=== PATIENT | male | born 1955 | race Caucasian/White ===

== ENCOUNTER → 2020-05-26 | Outpatient (CLI) | payer MEDICARE, OTHER ==
--- NOTE | 2020-05-28 05:26 | RAD ---
EXAM DESCRIPTION: Pelvis (accession [id number]), Hip,Left 2 Views (accession [id number]) EXAM DESCRIPTION: Pelvis (accession [id number]), Hip,Left 2 Views (accession [id number]): CR/DR/XR CLINICAL HISTORY: HIP PAIN LEFT TECHNIQUE: Two Views. AP neutral AP ABDuction. One view-AP pelvis. FINDINGS: Narrowing of the superior lateral left hip joint. Bilateral hypertrophic changes on the acetabula superiorly and also inferiorly on the left hip. Overall bone density is decreased. Enthesophytes on the bilateral issue tuberosities and iliac crests. No fracture. Vascular calcifications in the pelvis and other soft tissues. 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 No left hip or pelvic fracture. Electronically signed by: Porfirio Spear MD 05/28/2020 5:24 AM CDT
--- NOTE | 2020-05-28 05:27 | RAD ---
EXAM DESCRIPTION: Pelvis (accession [id number]), Hip,Left 2 Views (accession [id number]) EXAM DESCRIPTION: Pelvis (accession [id number]), Hip,Left 2 Views (accession [id number]): CR/DR/XR CLINICAL HISTORY: HIP PAIN LEFT TECHNIQUE: Two Views. AP neutral AP ABDuction. One view-AP pelvis. FINDINGS: Narrowing of the superior lateral left hip joint. Bilateral hypertrophic changes on the acetabula superiorly and also inferiorly on the left hip. Overall bone density is decreased. Enthesophytes on the bilateral issue tuberosities and iliac crests. No fracture. Vascular calcifications in the pelvis and other soft tissues. 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 No left hip or pelvic fracture. Electronically signed by: Porfirio Spear MD 05/28/2020 5:24 AM CDT
== END ==
LOC: RAD 08:09
PROVIDERS: ATTEND Orthopaedic Surgery
DX: M16.12 Unilateral primary osteoarthritis, left hip (principal)

== ENCOUNTER 2020-08-22 12:49 | Outpatient (CLI) | payer MEDICARE, OTHER | END 2020-08-23 11:33 | disposition home or self-care (01) | LOC: INFRM 12:49 | PROVIDERS: ATTEND Nurse Practitioner | DX: U07.1 COVID-19 (principal); Z23 Encounter for immunization ==